=== PATIENT | female | born 1940 | race Caucasian/White ===

== ENCOUNTER 2020-05-13 20:03 | Inpatient (IN) ==
[2020-05-13] MEDS ORDERED: Ondansetron 4 MG/2 ML VIAL IVP PRN (20:47)
[2020-05-13] MEDS ORDERED: NON-FORMULARY MEDICATION 1 EACH EACH (Omega-3/Dha/Epa/Fish Oil [Fish Oil 1,000 Mg Softgel] PO SCH (21:00)
[2020-05-13] MEDS: QUEtiapine Fumarate 25 MG TABLET PO SCH (22:36)
[2020-05-14] MEDS: Acetaminophen 325 MG TABLET PO PRN ×2 (05:41→14:32)
[2020-05-14 09:09] LABS: Basophils % 0.1 %; Eosinophils # 0.2 K/mcL (0.0-0.6); Eosinophils % 1.2 %; Hematocrit 39.2 % (35.3-44.9); Immature Granulocytes % 0.4 % (0-4); Lymphocytes # 0.5 K/mcL (0.6-4.6); Lymphocytes % 3.5 %; Mean Corpuscular HGB Conc 33.2 g/dL (31.6-35.5); Mean Corpuscular Hemoglobin 30.9 pg (28.0-33.3); Mean Corpuscular Volume 93.1 fL (83.0-100.0); Mean Platelet Volume 10.5 fL (9.4-12.4); Monocytes # 0.4 K/mcL (0.0-1.3); Monocytes % 3.2 %; Platelet Count 227 K/mcL (140-400); Red Blood Count 4.21 M/mcL (3.82-4.97); Red Cell Distribution Width 13.2 % (11.5-14.5); Segmented Neutrophils % 91.6 %; White Blood Count 13.8 K/mcL (4.3-11.1)
[2020-05-14 09:13] LABS: Neutrophils # 12.6 K/mcL (1.6-8.9)
[2020-05-14 09:21] LABS: Calcium 9.3 mg/dL (8.6-10.3); Magnesium 1.9 mg/dL (1.6-2.6); Potassium 4.3 mEq/L (3.5-5.1)
[2020-05-14 09:56] LABS: Platelet Estimate Normal (Normal)
[2020-05-14] MEDS ORDERED: *HR* Dextrose 50 % in Water (Vial) 50 ML VIAL IVP PRN (10:01)
[2020-05-14] MEDS ORDERED: D5% in Water 1,000 ML IVC PRN (10:01)
[2020-05-14] MEDS ORDERED: Dextrose Gel 15 GM/37.5 ML TUBE PO PRN ×2 (10:01)
[2020-05-14] MEDS ORDERED: Acetaminophen 325 MG TABLET PO PRN (10:02)
[2020-05-14] MEDS: Aspirin 81 MG TAB.CHEW PO SCH (10:28)
[2020-05-14] MEDS: DilTIAZem CD (24hr) 240 MG CAP.ER.24H PO SCH (10:28)
[2020-05-14] MEDS: lisinopriL 10 MG TABLET PO SCH (10:29)
[2020-05-14] MEDS: Cholecalciferol (D-3) 1,000 UNIT (25MCG) TABLET PO SCH (10:39)
[2020-05-14] MEDS: Vitamin B Complex/Vit C/Vit E 1 EACH TABLET PO SCH (10:40)
[2020-05-14] MEDS: Insulin LISPRO 300 UNITS/3 ML VIAL SUBQ SCH ×3 (11:42→20:40)
[2020-05-14] MEDS ORDERED: Ertapenem 1,000 MG in 0.9 % Sodium Chloride Mini Bag 100 ML IVPB SCH (12:00)
[2020-05-14] MEDS: QUEtiapine Fumarate 25 MG TABLET PO SCH (20:33)
[2020-05-15] MEDS: Insulin LISPRO 300 UNITS/3 ML VIAL SUBQ SCH ×4 (07:55→20:44)
[2020-05-15] MEDS: lisinopriL 10 MG TABLET PO SCH (08:04)
[2020-05-15] MEDS: Cholecalciferol (D-3) 1,000 UNIT (25MCG) TABLET PO SCH (08:11)
[2020-05-15] MEDS: DilTIAZem CD (24hr) 240 MG CAP.ER.24H PO SCH (08:11)
[2020-05-15] MEDS: Aspirin 81 MG TAB.CHEW PO SCH (08:11)
[2020-05-15] MEDS: Acetaminophen 325 MG TABLET PO PRN (08:12)
[2020-05-15] MEDS: Vitamin B Complex/Vit C/Vit E 1 EACH TABLET PO SCH (08:12)
[2020-05-15] MEDS ORDERED: Furosemide 20 MG TABLET PO SCH (12:00)
[2020-05-15] MEDS: QUEtiapine Fumarate 25 MG TABLET PO SCH (20:47)
[2020-05-16] MEDS ORDERED: lisinopriL 10 MG TABLET PO SCH (08:36)
[2020-05-16] MEDS: Aspirin 81 MG TAB.CHEW PO SCH (09:15)
[2020-05-16] MEDS: DilTIAZem CD (24hr) 240 MG CAP.ER.24H PO SCH (09:15)
[2020-05-16] MEDS: Insulin LISPRO 300 UNITS/3 ML VIAL SUBQ SCH ×4 (09:16→21:26)
[2020-05-16] MEDS: Vitamin B Complex/Vit C/Vit E 1 EACH TABLET PO SCH (09:16)
[2020-05-16 10:07] LABS: Basophils % 0.3 %; Eosinophils # 0.9 K/mcL (0.0-0.6); Eosinophils % 11.7 %; Hematocrit 36.6 % (35.3-44.9); Hemoglobin 12.1 g/dL (11.5-15.4); Immature Granulocytes % 0.4 % (0-4); Lymphocytes % 12.4 %; Mean Corpuscular HGB Conc 33.1 g/dL (31.6-35.5); Mean Corpuscular Volume 93.8 fL (83.0-100.0); Mean Platelet Volume 11.2 fL (9.4-12.4); Monocytes # 0.6 K/mcL (0.0-1.3); Monocytes % 7.8 %; Neutrophils # 5.2 K/mcL (1.6-8.9); Platelet Count 217 K/mcL (140-400); Red Cell Distribution Width 13.4 % (11.5-14.5); Segmented Neutrophils % 67.4 %; White Blood Count 7.7 K/mcL (4.3-11.1)
[2020-05-16 10:22] LABS: Albumin 3.5 g/dL (3.5-5.7); Albumin/Globulin Ratio 1.2 (1.1-2.2); Bilirubin,Total 0.9 mg/dL (0.3-1.0); Calcium 9.3 mg/dL (8.6-10.3); Globulin 2.9 g/dL (2.4-3.5); Potassium 3.8 mEq/L (3.5-5.1); Total Protein 6.4 g/dL (6.4-8.9)
[2020-05-16] MEDS: Ringers Solution, Lactated 1,000 ML IVC SCH (17:33)
[2020-05-16] MEDS: *HR* Heparin 5,000 UNIT/ML VIAL SQ SCH (21:25)
[2020-05-16] MEDS: QUEtiapine Fumarate 25 MG TABLET PO SCH (21:26)
[2020-05-17] MEDS: Ringers Solution, Lactated 1,000 ML IVC SCH (03:09)
[2020-05-17] MEDS: *HR* Heparin 5,000 UNIT/ML VIAL SQ SCH ×3 (05:36→21:17)
[2020-05-17 07:54] LABS: Albumin 3.9 g/dL (3.5-5.7); Albumin/Globulin Ratio 1.3 (1.1-2.2); Bilirubin,Total 0.9 mg/dL (0.3-1.0); Calcium 9.8 mg/dL (8.6-10.3); Globulin 3.1 g/dL (2.4-3.5); Potassium 4.3 mEq/L (3.5-5.1)
[2020-05-17] MEDS: DilTIAZem CD (24hr) 240 MG CAP.ER.24H PO SCH (10:51)
[2020-05-17] MEDS: Aspirin 81 MG TAB.CHEW PO SCH (10:52)
[2020-05-17] MEDS: Vitamin B Complex/Vit C/Vit E 1 EACH TABLET PO SCH (10:53)
[2020-05-17] MEDS: Cholecalciferol (D-3) 1,000 UNIT (25MCG) TABLET PO SCH (10:57)
[2020-05-17] MEDS ORDERED: methylPREDNISolone 125 MG/2 ML VIAL IVP ONE ×2 (11:57→14:30)
[2020-05-17] MEDS: Sulfamethoxazole/Trimeth DS 1 EACH TABLET PO SCH ×2 (14:45→21:16)
[2020-05-17] MEDS: QUEtiapine Fumarate 25 MG TABLET PO SCH (21:16)
[2020-05-18] MEDS: *HR* Heparin 5,000 UNIT/ML VIAL SQ SCH ×3 (05:32→21:01)
[2020-05-18 07:22] LABS: Basophils % 0.2 %; Hematocrit 36.7 % (35.3-44.9); Immature Granulocytes % 0.5 % (0-4); Lymphocytes # 1.1 K/mcL (0.6-4.6); Lymphocytes % 13.6 %; Mean Corpuscular HGB Conc 32.7 g/dL (31.6-35.5); Mean Corpuscular Hemoglobin 30.8 pg (28.0-33.3); Mean Corpuscular Volume 94.1 fL (83.0-100.0); Monocytes # 0.2 K/mcL (0.0-1.3); Monocytes % 1.9 %; Neutrophils # 6.9 K/mcL (1.6-8.9); Platelet Count 226 K/mcL (140-400); Red Cell Distribution Width 12.9 % (11.5-14.5); Segmented Neutrophils % 83.8 %; White Blood Count 8.3 K/mcL (4.3-11.1)
[2020-05-18 07:57] LABS: Calcium 9.4 mg/dL (8.6-10.3); Potassium 4.6 mEq/L (3.5-5.1)
[2020-05-18] MEDS: Sulfamethoxazole/Trimeth DS 1 EACH TABLET PO SCH ×2 (09:44→20:58)
[2020-05-18] MEDS: DilTIAZem CD (24hr) 240 MG CAP.ER.24H PO SCH (09:44)
[2020-05-18] MEDS: Aspirin 81 MG TAB.CHEW PO SCH (09:44)
[2020-05-18] MEDS: Vitamin B Complex/Vit C/Vit E 1 EACH TABLET PO SCH (09:45)
[2020-05-18] MEDS: Cholecalciferol (D-3) 1,000 UNIT (25MCG) TABLET PO SCH (09:50)
[2020-05-18] MEDS: predniSONE 20 MG TABLET PO SCH (09:50)
[2020-05-18] MEDS ORDERED: Ertapenem 1,000 MG in 0.9 % Sodium Chloride Mini Bag 100 ML IVPB SCH (12:00)
[2020-05-18] MEDS: Insulin LISPRO 300 UNITS/3 ML VIAL SUBQ SCH (19:01)
[2020-05-18] MEDS: QUEtiapine Fumarate 25 MG TABLET PO SCH (20:58)
[2020-05-19] MEDS: *HR* Heparin 5,000 UNIT/ML VIAL SQ SCH ×3 (05:39→20:23)
[2020-05-19 07:36] LABS: Albumin 3.5 g/dL (3.5-5.7); Albumin/Globulin Ratio 1.3 (1.1-2.2); Bilirubin,Total 0.6 mg/dL (0.3-1.0); Calcium 9.4 mg/dL (8.6-10.3); Globulin 2.7 g/dL (2.4-3.5); Potassium 4.9 mEq/L (3.5-5.1); Total Protein 6.2 g/dL (6.4-8.9)
[2020-05-19] MEDS: DilTIAZem CD (24hr) 240 MG CAP.ER.24H PO SCH (08:31)
[2020-05-19] MEDS: predniSONE 20 MG TABLET PO SCH (08:31)
[2020-05-19] MEDS: Sulfamethoxazole/Trimeth DS 1 EACH TABLET PO SCH ×2 (08:31→20:22)
[2020-05-19] MEDS: Cholecalciferol (D-3) 1,000 UNIT (25MCG) TABLET PO SCH (08:31)
[2020-05-19] MEDS: Aspirin 81 MG TAB.CHEW PO SCH (08:31)
[2020-05-19] MEDS: Vitamin B Complex/Vit C/Vit E 1 EACH TABLET PO SCH (08:32)
[2020-05-19] MEDS: QUEtiapine Fumarate 25 MG TABLET PO SCH (20:22)
[2020-05-20] MEDS: *HR* Heparin 5,000 UNIT/ML VIAL SQ SCH ×3 (05:59→20:32)
[2020-05-20] MEDS: DilTIAZem CD (24hr) 240 MG CAP.ER.24H PO SCH (08:22)
[2020-05-20] MEDS: predniSONE 20 MG TABLET PO SCH (08:23)
[2020-05-20] MEDS: Vitamin B Complex/Vit C/Vit E 1 EACH TABLET PO SCH (08:23)
[2020-05-20] MEDS: Aspirin 81 MG TAB.CHEW PO SCH (08:23)
[2020-05-20] MEDS: Sulfamethoxazole/Trimeth DS 1 EACH TABLET PO SCH ×2 (08:23→20:32)
[2020-05-20 11:30] LABS: Albumin 3.9 g/dL (3.5-5.7); Albumin/Globulin Ratio 1.3 (1.1-2.2); Bilirubin,Total 0.7 mg/dL (0.3-1.0); Calcium 9.8 mg/dL (8.6-10.3); Globulin 2.9 g/dL (2.4-3.5); Potassium 4.4 mEq/L (3.5-5.1); Total Protein 6.8 g/dL (6.4-8.9)
[2020-05-20] MEDS: Ringers Solution, Lactated 1,000 ML IVC SCH (18:12)
[2020-05-20] MEDS: QUEtiapine Fumarate 25 MG TABLET PO SCH (20:32)
[2020-05-21] MEDS: Ringers Solution, Lactated 1,000 ML IVC SCH ×3 (01:10→15:06)
[2020-05-21] MEDS: *HR* Heparin 5,000 UNIT/ML VIAL SQ SCH ×2 (05:48→15:06)
[2020-05-21 06:47] VITALS: BP 112/64
[2020-05-21] MEDS: Sulfamethoxazole/Trimeth DS 1 EACH TABLET PO SCH (08:54)
[2020-05-21] MEDS: predniSONE 20 MG TABLET PO SCH (08:54)
[2020-05-21] MEDS: Aspirin 81 MG TAB.CHEW PO SCH (08:55)
[2020-05-21] MEDS: DilTIAZem CD (24hr) 240 MG CAP.ER.24H PO SCH (08:55)
[2020-05-21] MEDS: Vitamin B Complex/Vit C/Vit E 1 EACH TABLET PO SCH (08:57)
[2020-05-21] MEDS: Cholecalciferol (D-3) 1,000 UNIT (25MCG) TABLET PO SCH (09:03)
[2020-05-21 09:58] LABS: Albumin 3.6 g/dL (3.5-5.7); Albumin/Globulin Ratio 1.3 (1.1-2.2); Bilirubin,Total 0.7 mg/dL (0.3-1.0); Calcium 9.3 mg/dL (8.6-10.3); Globulin 2.8 g/dL (2.4-3.5); Potassium 4.8 mEq/L (3.5-5.1); Total Protein 6.4 g/dL (6.4-8.9)
[2020-05-21 16:25] LABS: Calcium 9.4 mg/dL (8.6-10.3); Potassium 5.8 mEq/L (3.5-5.1)
== END 2020-05-21 18:04 | disposition home or self-care (01) | DRG 57 ==
LOC: INPPIK 20:04
PROVIDERS: ADMIT Family Medicine; ATTEND Family Medicine